=== PATIENT | female | born 1950 | race Hispanic/Latino ===

== ENCOUNTER 2021-09-16 09:47 | Observation (INO) | payer OTHER ==
[2021-09-10 13:17] LABS: BASOPHILS % (AUTO) 0.8 % (0.0-5.0); EOSINOPHILS % (AUTO) 0.7 % (0.0-8.0); HEMATOCRIT 38.4 % (36-48); LYMPHOCYTES % (AUTO) 37.7 % (21.0-51.0); MEAN CORPUSCULAR HEMOGLOBIN 29.2 pg (27.0-33.0); MEAN CORPUSCULAR HGB CONC 33.1 g/dL (32.0-36.0); MEAN CORPUSCULAR VOLUME 88.3 fL (79-99); MONOCYTES % (AUTO) 7.5 % (3.0-13.0); PLATELET COUNT (AUTO) 189 K/uL (130-400); RED BLOOD CELL COUNT(AUTO) 4.35 MIL/uL (4.00-5.50); RED CELL DISTRIBUTION WIDTH 12.5 % (11.0-15.5); WHITE BLOOD COUNT (AUTO) 7.2 K/uL (4.8-10.8)
[2021-09-10 13:27] LABS: CREATININE 0.6 mg/dL (0.5-1.5)
[2021-09-10 13:29] LABS: INR 1.06 (0.85-1.15); PROTHROMBIN TIME 11.5 SEC (9.6-11.6)
[2021-09-10 13:31] LABS: PARTIAL THROMBOPLASTIN TIME 27.6 SEC (26.3-35.5)
[2021-09-11 12:23] VITALS: BP 150/59
[~2021-09-16] VITALS: Ht 152.4 cm; Wt 73.2 kg
[2021-09-16] VITALS (18 sets, daily range): BP systolic 119–158; BP diastolic 53–98
[~2021-09-16 09:47] MED LIST: ACET1TAB25 PO; AEC81 PO; ATOR10 PO; CALCIUM PO; CEFAZOLIN SODIUM 1 GM VIAL IVP ONE; FISH1CAP27 PO; LACTATED RINGERS 1000ML 1,000 ML IV SCH; MELO7.5T12 PO; MV-M1TAB57 PO; TYLENOL ARTHRITIS PO
[2021-09-16] MEDS ORDERED: CEFAZOLIN SODIUM 1 GM VIAL ONE (10:07)
[2021-09-16] MEDS ORDERED: ROPIVACAINE 0.5% 5MG/ML 30ML IJ ONE (12:40)
[2021-09-16] MEDS ORDERED: SUCCINYLCHOLINE CHLORIDE 20 MG/ML 10 ML VIAL ONE (12:40)
[2021-09-16] MEDS ORDERED: LIDOCAINE PF 100MG/5ML (2%) SYRINGE 5ML ONE (12:40)
[2021-09-16] MEDS ORDERED: ROCURONIUM 10MG/1ML SYR 10 MG/ML ML ONE (12:40)
[2021-09-16] MEDS ORDERED: PROPOFOL 10 MG/ML 20ML VIAL IV ONE (12:40)
[2021-09-16] MEDS ORDERED: FENTANYL CITRATE PF 50 MCG/1 ML 2ML VIAL ONE ×2 (12:41→15:46)
[2021-09-16] MEDS ORDERED: HYDROCODONE/ACETAMINOPHEN 5/325 MG TAB PO PRN (14:00)
[2021-09-16] MEDS: ACETAMINOPHEN 500 MG TABLET PO SCH ×2 (14:00→22:14)
[2021-09-16] MEDS ORDERED: MORPHINE 4 MG SYG IVP PRN (14:00)
[2021-09-16] MEDS ORDERED: ONDANSETRON 4MG INJ IVP PRN (14:00)
[2021-09-16] MEDS ORDERED: HYDROCODONE/ACETAMINOPHEN 10/325 MG TAB PO PRN (14:00)
[2021-09-16] MEDS ORDERED: GLYCOPYRROLATE 1 MG/5 ML SYRINGE ONE (14:12)
[2021-09-16] MEDS ORDERED: TRANEXAMIC ACID 1000MG/10ML ONE (14:28)
[2021-09-16] MEDS ORDERED: EPHEDRINE SULFATE 50 MG/ML AMPULE ONE (14:47)
[2021-09-16] MEDS ORDERED: PHENYLEPHRINE HCL 10 MG/ML 1ML VIAL IV ONE (15:32)
[2021-09-16] MEDS ORDERED: NEOSTIGMINE 5MG/5ML SYR IV ONE (16:06)
[2021-09-16] MEDS: CEFAZOLIN SODIUM 1 GM VIAL IVP SCH (18:21)
[2021-09-16] MEDS: TRAMADOL HCL 50 MG TABLET PO SCH (18:22)
[2021-09-16] MEDS: 0.9%NACL 1000ML 1,000 ML IV SCH (18:22)
[2021-09-16] MEDS: FAMOTIDINE 20MG TAB PO SCH (22:14)
[2021-09-16] MEDS: ASPIRIN 81 MG EC TAB PO SCH (22:14)
[2021-09-16] MEDS: CELECOXIB 200 MG CAP PO SCH (22:14)
[2021-09-17] MEDS: TRAMADOL HCL 50 MG TABLET PO SCH ×3 (01:10→13:13)
[2021-09-17] MEDS: CEFAZOLIN SODIUM 1 GM VIAL IVP SCH (03:36)
[2021-09-17] MEDS: 0.9%NACL 1000ML 1,000 ML IV SCH ×2 (03:39→09:02)
[2021-09-17 04:26] VITALS: BP 114/59
[2021-09-17] MEDS: ACETAMINOPHEN 500 MG TABLET PO SCH ×2 (05:49→14:00)
[2021-09-17 05:57] LABS: HEMATOCRIT 30.7 % (36-48); MEAN CORPUSCULAR HEMOGLOBIN 29.2 pg (27.0-33.0); MEAN CORPUSCULAR HGB CONC 32.6 g/dL (32.0-36.0); MEAN CORPUSCULAR VOLUME 89.8 fL (79-99); RED BLOOD CELL COUNT(AUTO) 3.42 MIL/uL (4.00-5.50); RED CELL DISTRIBUTION WIDTH 12.9 % (11.0-15.5); WHITE BLOOD COUNT (AUTO) 11.6 K/uL (4.8-10.8)
[2021-09-17 06:07] LABS: CREATININE 0.6 mg/dL (0.5-1.5); POTASSIUM 3.7 mmol/L (3.5-5.1)
[2021-09-17 07:54] VITALS: BP 130/74
[2021-09-17] MEDS ORDERED: POLYETHYLENE GLYCOL 3350 17 GM POWD.PACK PO SCH (09:00)
[2021-09-17] MEDS: FAMOTIDINE 20MG TAB PO SCH (09:01)
[2021-09-17] MEDS: CELECOXIB 200 MG CAP PO SCH (09:01)
[2021-09-17] MEDS: ASPIRIN 81 MG EC TAB PO SCH (09:01)
[2021-09-17 11:06] VITALS: BP 133/76
[2021-09-17 15:58] VITALS: BP 136/79
[2021-09-17] MEDS ORDERED: ONDANSETRON 4MG TABLET PO SCH (16:00)
[2021-09-19] MEDS ORDERED: BISACODYL 10 MG SUPP.RECT RC PRN (14:00)
== END 2021-09-17 17:00 | disposition home or self-care (01) ==
LOC: DAH 09:47 → DAHIP 09:48 → DAH 09:48 → 3AH 17:31 → UNDODISOB 09-17 17:00
PROVIDERS: ADMIT Orthopaedic Surgery; ATTEND Orthopaedic Surgery
DX: M75.121 Complete rotator cuff tear or rupture of right shoulder, not specified as traumatic (principal); Z20.822 Contact with and (suspected) exposure to COVID-19; E78.00 Pure hypercholesterolemia, unspecified; Z79.899 Other long term (current) drug therapy; Z79.01 Long term (current) use of anticoagulants
CPT/HCPCS: 23472; 36415 ×2; 73030 ×2; 80048 ×2; 85025; 85027; 85610; 85730; 87635; 96374; 96375; 96376; 97039 ×2; 97116 ×2; 97161; 97530 ×2; A4215; A4221; A4222; A4223; A4565; A4600; A4649 ×4; A4663; A5120; A6219; A6223; A6260; C1776; C9803; G0378 ×23; J0330; J0690 ×3; J2001; J2370; J2405; J2704; J2710; J2795; J3010 ×2; J3490 ×3; J7030 ×3; J7120; Q0162